=== PATIENT | male | born 1930 | race Caucasian/White ===

== ENCOUNTER 2016-11-26 09:58 | Inpatient (IN) | payer MEDICARE, OTHER ==
[~2016-11-26] VITALS: Ht 172.7 cm; Wt 79.4 kg
[2016-11-26] VITALS (12 sets, daily range): BP systolic 96–128; BP diastolic 42–70
[2016-11-26] MEDS ORDERED: LIDOCAINE 2% JEL UROJET 10 ML MM ONE ×2 (10:05→10:30)
[2016-11-26 10:18] LABS: BASOPHILS # (AUTO) 0.2 /CMM (0.0-0.2); BASOPHILS % (AUTO) 1.6 % (0.0-2.0); EOSINOPHILS # (AUTO) 0.1 /CMM (0.0-0.7); EOSINOPHILS % (AUTO) 1.2 % (0.0-6.0); HEMATOCRIT 34 % (39-51); HEMOGLOBIN 10.9 g/dL (13.5-17.5); LYMPHOCYTES # (AUTO) 3.6 /CMM (0.8-4.8); LYMPHOCYTES % (AUTO) 31.2 % (20.0-44.0); MEAN CORPUSCULAR HEMOGLOBIN 28 PG (26.0-33.0); MEAN CORPUSCULAR HGB CONC 32 g/dl (31.0-36.0); MEAN CORPUSCULAR VOLUME 85 fL (80-96); MONOCYTES # (AUTO) 1.4 /CMM (0.1-1.30); MONOCYTES % (AUTO) 11.9 % (2.0-12.0); NEUTROPHILS # (AUTO) 6.4 /CMM (1.8-8.9); NEUTROPHILS % (AUTO) 54.1 % (43.0-81.0); PLATELET COUNT (AUTO) 144 /CMM (150-450); RED BLOOD CELL COUNT(AUTO) 3.94 MIL/uL (4.5-6.0); WHITE BLOOD COUNT (AUTO) 11.7 K/uL (4.3-11.0)
[2016-11-26 10:26] LABS: CALCIUM, SERUM 8.1 mg/dL (8.5-10.1); CARBON DIOXIDE 39 mmol/L (21-32); CHLORIDE 102 mmol/L (98-107); CREATININE 1.3 mg/dL (0.6-1.3); GLUCOSE 90 mg/dL (74-106); POTASSIUM 4.5 mmol/L (3.5-5.1); SODIUM SERUM 142 mmol/L (136-145); UREA NITROGEN, BLOOD 29 mg/dL (7-18)
[2016-11-26 10:34] LABS: ABG BASE EXCESS 6.9 mmol/L; ABG OXYGEN SATURATION 19.1 % (92.0-98.5); ABG PCO2 66.6 mmHg (35.0-45.0); ABG PH 7.331 (7.350-7.450); ABG PO2 17.7 mmHg (75.0-100.0); COHb 1.2 % (0.5-1.5); MetHb 1.9 % (0.0-1.5); O2Hb 18.5 % (94.0-97.0); SITE, ABG LEFT ARM; VENT MODE, BG VBG VIA SIMPLE MASK
[2016-11-26 10:34] LABS: TROPONIN I < 0.017 ng/mL (0.00-0.056)
[2016-11-26 10:37] LABS: APPEARANCE,URINE Clear (CLEAR); BILIRUBIN,URINE SMALL (NEGATIVE); BLOOD, URINE Moderate Ery/uL (NEGATIVE); COLOR,URINE Yellow (YELLOW); KETONES,URINE Negative (NEGATIVE); LEUKOCYTE ESTERASE ,URINE Small (NEGATIVE); NITRITE, URINE Positive (NEGATIVE); PH,URINE 5.5 (5.0-8.0); PROTEIN,URINE 30 mg/dl (NEGATIVE); UGLUCOSE Negative (NEGATIVE)
[2016-11-26 10:38] LABS: ALANINE AMINOTRANSFERASE < 6 U/L (12-78); ALKALINE PHOSPHATASE 80 U/L (46-116); ASPARTATE AMINOTRANSFERASE 19 U/L (15-37); B-TYPE NATRIURETIC PEPTIDE 867 PG/ML (0-125); BILIRUBIN,DIRECT 0.1 mg/dL (0.0-0.2); BILIRUBIN,TOTAL 0.2 mg/dL (0.2-1.0); TOTAL PROTEIN, SERUM 6.4 g/dL (6.4-8.2)
[2016-11-26 10:40] LABS: ALBUMIN 1.4 g/dL (3.4-5.0)
[2016-11-26 10:54] LABS: BACTERIA,URINE Few /HPF (None Seen); WBC,URINE 80-100 /HPF (0-3)
[2016-11-26 10:55] LABS: SQUAMOUS EPITHELIAL CELL,UR Few /HPF (None Seen)
[2016-11-26] MEDS ORDERED: methylPREDNISolone SOD SUCC 125 MG/2ML VIAL ONE (11:09)
[2016-11-26] MEDS ORDERED: LEVOFLOXACIN 750 MG /D5W 150ML 150 ML IV ONE (11:09)
[2016-11-26] MEDS ORDERED: IV SET PRIMARY PUMP SET 1 EA INFUS.SET MC ONE ×4 (11:09→15:18)
[2016-11-26] MEDS ORDERED: IV NS 0.9% 1,000 ML BAG IV ONE ×2 (11:30→12:00)
[2016-11-26] MEDS ORDERED: LEVOFLOXACIN 750 MG /D5W 150ML PIGGYBACK IV ONE (11:30)
[2016-11-26] MEDS ORDERED: methylPREDNISolone SOD SUCC 125 MG/2ML VIAL IV ONE (11:30)
[2016-11-26] MEDS ORDERED: IV NS 0.9% 1,000 ML ONE ×2 (11:37→12:10)
[2016-11-26] MEDS ORDERED: IV NS 0.9% 500 ML IV ONE (12:10)
[2016-11-26 14:01] LABS: ABG BASE EXCESS 3.5 mmol/L; ABG OXYGEN SATURATION 94.8 % (92.0-98.5); ABG PCO2 53.2 mmHg (35.0-45.0); ABG PH 7.365 (7.350-7.450); ABG PO2 83.1 mmHg (75.0-100.0); AaDO2 213.6 mmHg; COHb 0.7 % (0.5-1.5); MetHb 0.5 % (0.0-1.5); O2Hb 93.7 % (94.0-97.0); SITE, ABG Right Radial; VENT MODE, BG IPAP 10/ EPAP 5
[2016-11-26] MEDS ORDERED: SECONDARY IV SET 1 EA INFUS.SET MC ONE (15:18)
[2016-11-26] MEDS: HEPARIN SODIUM, PORCINE 5000 UNITS/1 ML VIAL SQ SCH ×2 (15:30→21:54)
[2016-11-26] MEDS ORDERED: IV NS 0.9% 1,000 ML IV PRN (15:30)
[2016-11-26] MEDS: MEROPENEM 500 MG in IV NS 0.9% 50 ML IV SCH (16:38)
[2016-11-26] MEDS ORDERED: ARGI1POW13 PO (23:26)
[2016-11-26] MEDS ORDERED: HYDR-552 PO (23:26)
[2016-11-26] MEDS ORDERED: ALBU0.633 NEB (23:26)
[2016-11-26] MEDS ORDERED: TRAZ-144 PO (23:26)
[2016-11-26] MEDS ORDERED: IPRA0.2S9 IH (23:26)
[2016-11-26] MEDS ORDERED: DIVA500T2 GT (23:26)
[2016-11-26] MEDS ORDERED: QUET50TA PO (23:26)
[2016-11-26] MEDS ORDERED: ACET325T53 MC (23:26)
[2016-11-26] MEDS ORDERED: CYAN250014 PO (23:26)
[2016-11-26] MEDS ORDERED: AMLO5TAB4 PO (23:26)
[2016-11-26] MEDS ORDERED: [UNRECOGNIZED DRUG - CODE] PO (23:26)
[2016-11-26] MEDS ORDERED: BISA-79 PO (23:26)
[2016-11-26] MEDS ORDERED: DRON2.5C3 PO (23:26)
[2016-11-26] MEDS ORDERED: MAG355OR18 PO (23:26)
[2016-11-26] MEDS ORDERED: PSYL0.4C2 PO (23:26)
[2016-11-26] MEDS ORDERED: BENZ0.5T3 PO (23:26)
[2016-11-26] MEDS ORDERED: MELO-270 PO (23:26)
[2016-11-26] MEDS ORDERED: CLON1PAT TD (23:26)
[2016-11-26] MEDS ORDERED: TAMS-12 GT (23:26)
[2016-11-26] MEDS ORDERED: NA P133E RC (23:26)
[2016-11-26] MEDS ORDERED: FURO-145 PO (23:26)
[2016-11-26] MEDS ORDERED: DOCU-170 PO (23:26)
[2016-11-27] VITALS (20 sets, daily range): BP systolic 114–153; BP diastolic 20–102
[2016-11-27] MEDS: MEROPENEM 500 MG in IV NS 0.9% 50 ML IV SCH ×2 (04:25→16:54)
[2016-11-27] MEDS ORDERED: IV NS 0.9% 1,000 ML ONE (04:36)
[2016-11-27] MEDS: HEPARIN SODIUM, PORCINE 5000 UNITS/1 ML VIAL SQ SCH ×3 (05:30→21:19)
[2016-11-27 08:54] LABS: ABG BASE EXCESS 4.7 mmol/L; ABG PCO2 44.3 mmHg (35.0-45.0); ABG PO2 76.7 mmHg (75.0-100.0); AaDO2 128.6 mmHg; COHb 0.9 % (0.5-1.5); MetHb 0.6 % (0.0-1.5); O2Hb 93.6 % (94.0-97.0); SITE, ABG Right Radial; VENT MODE, BG NASAL CANNULA
[2016-11-27] MEDS: PANTOPRAZOLE 40 MG VIAL IV SCH (10:40)
[2016-11-27] MEDS ORDERED: MAG HYDROX/AL HYDROX/SIMETH 30 ML UDC PO PRN (12:00)
[2016-11-27] MEDS: ALBUTEROL HALF STRENGTH 1.25 MG/3 ML VIAL.NEB NEB SCH ×2 (13:30→20:13)
[2016-11-27] MEDS: DIVALPROEX SODIUM 500 MG TABLET.DR PO SCH ×2 (13:45→17:06)
[2016-11-27] MEDS: BISACODYL (5 MG) 5 MG TABLET.DR PO SCH (13:45)
[2016-11-27 13:53] LABS: BASOPHILS % (AUTO) 0.2 % (0.0-2.0); EOSINOPHILS % (AUTO) 0.1 % (0.0-6.0); HEMATOCRIT 36 % (39-51); HEMOGLOBIN 11.6 g/dL (13.5-17.5); LYMPHOCYTES # (AUTO) 1.3 /CMM (0.8-4.8); LYMPHOCYTES % (AUTO) 13.5 % (20.0-44.0); MEAN CORPUSCULAR HEMOGLOBIN 28 PG (26.0-33.0); MEAN CORPUSCULAR HGB CONC 32 g/dl (31.0-36.0); MEAN CORPUSCULAR VOLUME 87 fL (80-96); MONOCYTES # (AUTO) 0.9 /CMM (0.1-1.30); MONOCYTES % (AUTO) 9.5 % (2.0-12.0); NEUTROPHILS # (AUTO) 7.4 /CMM (1.8-8.9); NEUTROPHILS % (AUTO) 76.7 % (43.0-81.0); PLATELET COUNT (AUTO) 157 /CMM (150-450); RDW COEFFICIENT OF VARIATION 17.7 (11.5-15.0); RED BLOOD CELL COUNT(AUTO) 4.15 MIL/uL (4.5-6.0); WHITE BLOOD COUNT (AUTO) 9.6 K/uL (4.3-11.0)
[2016-11-27 13:56] LABS: ALANINE AMINOTRANSFERASE 10 U/L (12-78); ALBUMIN 1.6 g/dL (3.4-5.0); ALKALINE PHOSPHATASE 90 U/L (46-116); ASPARTATE AMINOTRANSFERASE 16 U/L (15-37); BILIRUBIN,TOTAL 0.3 mg/dL (0.2-1.0); CARBON DIOXIDE 32 mmol/L (21-32); CHLORIDE 104 mmol/L (98-107); GLUCOSE 101 mg/dL (74-106); SODIUM SERUM 142 mmol/L (136-145); TOTAL PROTEIN, SERUM 7.2 g/dL (6.4-8.2); UREA NITROGEN, BLOOD 30 mg/dL (7-18)
[2016-11-27 14:07] LABS: FREE PSA 0.41 ng/mL (0.00-45); PROSTATE SPECIFIC ANTIGEN SCR 2.4 ng/mL (0.00-4.00)
[2016-11-27] MEDS ORDERED: IV SET PRIMARY PUMP SET 1 EA INFUS.SET MC ONE (16:18)
[2016-11-27] MEDS ORDERED: IV NS 0.9% 250 ML IV ONE (16:18)
[2016-11-27] MEDS ORDERED: SECONDARY IV SET 1 EA INFUS.SET MC ONE ×2 (16:19→16:54)
[2016-11-27] MEDS: DRONABINOL (2.5 MG) 2.5 MG CAPSULE PO SCH (17:06)
[2016-11-27] MEDS: DOCUSATE SODIUM 100 MG CAPSULE PO SCH (17:06)
[2016-11-27] MEDS: QUETIAPINE FUMARATE 25 MG TABLET PO SCH (17:06)
[2016-11-27] MEDS: IPRATROPIUM NEB FS 0.5 MG/2.5 ML AMPUL.NEB IH PRN (20:13)
[2016-11-27] MEDS: BENZTROPINE MESYLATE (1 MG) 1 MG TABLET PO SCH (21:17)
[2016-11-27] MEDS: TAMSULOSIN 0.4 MG CAP.SR.24H GT SCH (21:18)
[2016-11-28] VITALS: BP 133/65
[2016-11-28 00:15] VITALS: BP 133/65
[2016-11-28] MEDS: ALBUTEROL HALF STRENGTH 1.25 MG/3 ML VIAL.NEB NEB SCH ×4 (01:24→19:42)
[2016-11-28] MEDS: MEROPENEM 500 MG in IV NS 0.9% 50 ML IV SCH ×2 (03:25→16:38)
[2016-11-28 04:00] VITALS: BP 131/68
[2016-11-28] MEDS: HEPARIN SODIUM, PORCINE 5000 UNITS/1 ML VIAL SQ SCH ×3 (05:10→22:02)
[2016-11-28 06:30] VITALS: BP 120/63
[2016-11-28 06:56] LABS: BASOPHILS % (AUTO) 0.1 % (0.0-2.0); HEMATOCRIT 28 % (39-51); HEMOGLOBIN 9.3 g/dL (13.5-17.5); LYMPHOCYTES # (AUTO) 2.2 /CMM (0.8-4.8); LYMPHOCYTES % (AUTO) 30.3 % (20.0-44.0); MEAN CORPUSCULAR HEMOGLOBIN 28 PG (26.0-33.0); MEAN CORPUSCULAR HGB CONC 33 g/dl (31.0-36.0); MEAN CORPUSCULAR VOLUME 87 fL (80-96); MONOCYTES # (AUTO) 0.8 /CMM (0.1-1.30); MONOCYTES % (AUTO) 11.6 % (2.0-12.0); NEUTROPHILS # (AUTO) 4.1 /CMM (1.8-8.9); PLATELET COUNT (AUTO) 183 /CMM (150-450); RDW COEFFICIENT OF VARIATION 19.1 (11.5-15.0); RED BLOOD CELL COUNT(AUTO) 3.26 MIL/uL (4.5-6.0); WHITE BLOOD COUNT (AUTO) 7.1 K/uL (4.3-11.0)
[2016-11-28 07:20] LABS: CALCIUM, SERUM 8.5 mg/dL (8.5-10.1); CARBON DIOXIDE 34 mmol/L (21-32); CHLORIDE 109 mmol/L (98-107); CREATININE 0.9 mg/dL (0.6-1.3); GLUCOSE 89 mg/dL (74-106); MAGNESIUM 2.3 mg/dL (1.8-2.4); PHOSPHORUS 2.6 mg/dL (2.5-4.9); SODIUM SERUM 145 mmol/L (136-145); UREA NITROGEN, BLOOD 27 mg/dL (7-18)
[2016-11-28] MEDS: DIVALPROEX SODIUM 500 MG TABLET.DR PO SCH ×3 (08:48→16:38)
[2016-11-28] MEDS: PANTOPRAZOLE 40 MG VIAL IV SCH (08:48)
[2016-11-28] MEDS: DOCUSATE SODIUM 100 MG CAPSULE PO SCH ×2 (08:48→16:38)
[2016-11-28] MEDS: BISACODYL (5 MG) 5 MG TABLET.DR PO SCH (08:49)
[2016-11-28] MEDS: AMLODIPINE BESYLATE 5 MG TABLET PO SCH (08:49)
[2016-11-28] MEDS: DRONABINOL (2.5 MG) 2.5 MG CAPSULE PO SCH ×2 (08:49→16:38)
[2016-11-28] MEDS: FUROSEMIDE 20 MG TABLET PO SCH (08:49)
[2016-11-28] MEDS ORDERED: Z GUARD REMEDY 2 OZ OINT TP PRN (12:00)
[2016-11-28] MEDS: SILVER SULFADIAZINE CREAM 25 GM TUBE TP SCH (12:00)
[2016-11-28] MEDS: Z GUARD REMEDY 2 OZ OINT TP SCH (12:00)
[2016-11-28 16:00] VITALS: BP 123/54
[2016-11-28] MEDS ORDERED: SECONDARY IV SET 1 EA INFUS.SET MC ONE (16:31)
[2016-11-28 20:00] VITALS: BP 150/69
[2016-11-28] MEDS: QUETIAPINE FUMARATE 25 MG TABLET PO SCH (20:06)
[2016-11-28] MEDS: BENZTROPINE MESYLATE (1 MG) 1 MG TABLET PO SCH (22:06)
[2016-11-28] MEDS: TAMSULOSIN 0.4 MG CAP.SR.24H GT SCH (22:06)
[2016-11-29] MEDS: ALBUTEROL HALF STRENGTH 1.25 MG/3 ML VIAL.NEB NEB SCH ×4 (01:25→19:21)
[2016-11-29] MEDS: MEROPENEM 500 MG in IV NS 0.9% 50 ML IV SCH ×2 (04:00→16:54)
[2016-11-29 08:00] VITALS: BP 137/79
[2016-11-29] MEDS: BISACODYL (5 MG) 5 MG TABLET.DR PO SCH (09:18)
[2016-11-29] MEDS: DRONABINOL (2.5 MG) 2.5 MG CAPSULE PO SCH ×2 (09:19→17:39)
[2016-11-29] MEDS: DIVALPROEX SODIUM 500 MG TABLET.DR PO SCH ×3 (09:19→17:40)
[2016-11-29] MEDS: DOCUSATE SODIUM 100 MG CAPSULE PO SCH ×2 (09:19→17:39)
[2016-11-29] MEDS: AMLODIPINE BESYLATE 5 MG TABLET PO SCH (09:19)
[2016-11-29] MEDS: FUROSEMIDE 20 MG TABLET PO SCH (09:19)
[2016-11-29] MEDS: PANTOPRAZOLE 40 MG VIAL IV SCH (09:20)
[2016-11-29] MEDS: Z GUARD REMEDY 2 OZ OINT TP SCH (09:20)
[2016-11-29] MEDS: SILVER SULFADIAZINE CREAM 25 GM TUBE TP SCH (09:21)
[2016-11-29] MEDS: HEPARIN SODIUM, PORCINE 5000 UNITS/1 ML VIAL SQ SCH ×2 (09:21→21:33)
[2016-11-29] MEDS: IPRATROPIUM NEB FS 0.5 MG/2.5 ML AMPUL.NEB IH PRN (14:50)
[2016-11-29 16:00] VITALS: BP 145/72
[2016-11-29] MEDS: QUETIAPINE FUMARATE 25 MG TABLET PO SCH (17:40)
[2016-11-29 20:00] VITALS: BP 147/74
[2016-11-29] MEDS: BENZTROPINE MESYLATE (1 MG) 1 MG TABLET PO SCH (21:26)
[2016-11-29] MEDS: TAMSULOSIN 0.4 MG CAP.SR.24H GT SCH (21:26)
[2016-11-30] MEDS: ALBUTEROL HALF STRENGTH 1.25 MG/3 ML VIAL.NEB NEB SCH ×3 (00:48→12:52)
[2016-11-30] MEDS: MEROPENEM 500 MG in IV NS 0.9% 50 ML IV SCH (04:46)
[2016-11-30 08:00] VITALS: BP 154/66
[2016-11-30 08:58] VITALS: BP 130/74
[2016-11-30] MEDS: FUROSEMIDE 20 MG TABLET PO SCH (08:58)
[2016-11-30] MEDS: BISACODYL (5 MG) 5 MG TABLET.DR PO SCH (08:58)
[2016-11-30] MEDS: DOCUSATE SODIUM 100 MG CAPSULE PO SCH (08:58)
[2016-11-30] MEDS: AMLODIPINE BESYLATE 5 MG TABLET PO SCH (08:58)
[2016-11-30] MEDS: HEPARIN SODIUM, PORCINE 5000 UNITS/1 ML VIAL SQ SCH (08:59)
[2016-11-30] MEDS: DIVALPROEX SODIUM 500 MG TABLET.DR PO SCH ×2 (08:59→13:50)
[2016-11-30] MEDS: Z GUARD REMEDY 2 OZ OINT TP SCH (09:00)
[2016-11-30] MEDS: PANTOPRAZOLE 40 MG VIAL IV SCH (09:00)
[2016-11-30] MEDS: DRONABINOL (2.5 MG) 2.5 MG CAPSULE PO SCH (09:00)
[2016-11-30] MEDS: SILVER SULFADIAZINE CREAM 25 GM TUBE TP SCH (09:01)
== END 2016-11-30 17:00 | DRG 871 ==
LOC: ER 10:00 → ICU 13:14 → TELE 11-27 11:45 → MED 11-28 10:27
PROVIDERS: ADMIT Internal Medicine Pulmonary Disease; ATTEND Internal Medicine
DX: A41.9 Sepsis, unspecified organism (principal); J96.01 Acute respiratory failure with hypoxia; E43 Unspecified severe protein-calorie malnutrition; G93.41 Metabolic encephalopathy; J69.0 Pneumonitis due to inhalation of food and vomit; J15.9 Unspecified bacterial pneumonia; J44.0 Chronic obstructive pulmonary disease with (acute) lower respiratory infection; N39.0 Urinary tract infection, site not specified; E87.2 Acidosis; J90 Pleural effusion, not elsewhere classified; N13.8 Other obstructive and reflux uropathy; R64 Cachexia; J44.1 Chronic obstructive pulmonary disease with (acute) exacerbation; D63.8 Anemia in other chronic diseases classified elsewhere; N18.9 Chronic kidney disease, unspecified; I12.9 Hypertensive chronic kidney disease with stage 1 through stage 4 chronic kidney disease, or unspecified chronic kidney disease; E83.42 Hypomagnesemia; F20.9 Schizophrenia, unspecified; F02.80 Dementia in other diseases classified elsewhere, unspecified severity, without behavioral disturbance, psychotic disturbance, mood disturbance, and anxiety; G30.9 Alzheimer's disease, unspecified; F09 Unspecified mental disorder due to known physiological condition; G20 Parkinson's disease; M19.90 Unspecified osteoarthritis, unspecified site; N40.1 Benign prostatic hyperplasia with lower urinary tract symptoms; Z87.891 Personal history of nicotine dependence; J20.9 Acute bronchitis, unspecified; F39 Unspecified mood [affective] disorder; M85.80 Other specified disorders of bone density and structure, unspecified site; Z68.26 Body mass index [BMI] 26.0-26.9, adult; R65.20 Severe sepsis without septic shock
CPT/HCPCS: 36415; 36600; 71010-TC; 73050-TC; 73060-TC; 80048-TC; 80053-TC; 80076-TC; 81000-TC; 82803-TC; 83605-TC; 83735-TC; 83880; 84100-TC; 84153-TC; 84154-TC; 84484-TC; 85025-TC; 87040-TC; 87081-TC; 92526; 92611-TC; 94799-TC; A4216; A4606; C9113; J1644; J1956; J2185; J2930; J3490; J7030; J7040; J7050; Q0167; Z7610